=== PATIENT | female | born 2000 | race Caucasian/White ===

== ENCOUNTER 2022-02-16 21:47 | Emergency (ER) | payer SELFPAY ==
[~2022-02-16 21:47] MED LIST: BACTROBAN CREAM15 GM TOP; COLACE 100MG C100 MG PO; IBUPROFEN600 MG PO; IBUPROFEN800 MG PO; LORTAB 5-325 M1 EACH PO; MACROBID 100 M100 MG PO; NORCO 5-325 TA1 EACH PO; PRENATAL TABLE1 EAC1 PO
[2022-02-16] MEDS ORDERED: [UNRECOGNIZED DRUG - OTHER] TP (22:37)
[2022-02-16] MEDS ORDERED: NEOSPORIN TP (22:37)
[2022-02-16] MEDS ORDERED: IBUPROFEN800 MG PO (22:37)
== END 2022-02-16 22:50 | disposition home or self-care (01) ==
LOC: ER1 21:47
DX: T25.212A Burn of second degree of left ankle, initial encounter (principal); T25.121A Burn of first degree of right foot, initial encounter; F17.200 Nicotine dependence, unspecified, uncomplicated; X10.1XXA Contact with hot food, initial encounter
CPT/HCPCS: 90715; 99283